=== PATIENT | female | born 1985 | race Caucasian/White ===

== ENCOUNTER 2016-11-20 13:14 | Emergency (ER) | payer OTHER ==
[~2016-11-20] VITALS: Ht 172.7 cm; Wt 120.2 kg
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
--- NOTE | 2016-11-20 16:35 | Diagnostic Imaging Report ---
Cervical spine. INDICATION: Pain in right shoulder. AP, lateral and odontoid views were obtained. There are no prior studies available for comparison. FINDINGS: The lateral view shows reversal of the normal lordosis of the cervical spine. This may be secondary to muscle spasm and/or positioning. The intervertebral spaces are fairly well-maintained. There is no fracture or acute bony abnormality evident. There is no sign of retropharyngeal edema. Lung apices are clear. IMPRESSION: The reversal of the normal lordosis of cervical spine may be secondary to muscle spasm and/or positioning. There is no fracture or acute bony abnormality noted. Dictated by: Dictated on workstation # [id number]
[2016-11-20] MEDS ORDERED: CYCL10TA9 PO (16:38)
[2016-11-20] MEDS ORDERED: KETO10TA PO (16:38)
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
[2016-11-20 16:44] VITALS: BP 124/80
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
== END 2016-11-20 16:43 | disposition home or self-care (01) ==
LOC: ER 13:15
DX: S89.012A Salter-Harris Type I physeal fracture of upper end of left tibia, initial encounter for closed fracture (principal); V89.2XXA Person injured in unspecified motor-vehicle accident, traffic, initial encounter
CPT/HCPCS: 72040; 72070; 73030; 99282